=== PATIENT | female | born 1970 ===

== ENCOUNTER 2024-07-22 08:52 | Emergency (ER) | payer MEDICAID, SELFPAY ==
--- NOTE | ~2024-07-22 | XR_ITS ---
CLINICAL HISTORY: chest pain 2 view chest x-ray. Comparison: None Findings: The lungs are adequately expanded. No focal consolidation. No effusion or pneumothorax. Cardiac and mediastinal contours are within normal limits. No acute osseous abnormality Impression: No acute process. This document has been electronically signed by: Elton Moser MD on 07/22/2024 10:16:39
--- NOTE | ~2024-07-22 | CT_ITS ---
CLINICAL HISTORY: tachycardia, SOB CT angiography chest with contrast. 3D Postprocessing. Comparison: None Findings: The heart size is normal. RV/LV ratio is normal. Unremarkable thoracic aorta and great vessels. No aneurysm. No pulmonary artery filling defects. The visualized thyroid and mediastinum are unremarkable. Emphysema. Calcified granulomas. Hypodensity of the liver dome could represent a cyst. Gallstones in the gallbladder. No acute fractures. IMPRESSION: 1. No pulmonary emboli. This document has been electronically signed by: Gabby Boeyr MD on 07/22/2024 15:55:34
[2024-07-22 08:55] VITALS: BP 116/85; PULSE 112; RESP 20; TEMP 37.4; O2SAT 92; BMI 24.3
--- NOTE | 2024-07-22 08:58 | ECG_ITS ---
Test Reason : chest pain Blood Pressure : */* mmHG Vent. Rate : 94 BPM Atrial Rate : 94 BPM P-R Int : 178 ms QRS Dur : 82 ms QT Int : 344 ms P-R-T Axes : 81 73 74 degrees QTcB Int : 430 ms Normal sinus rhythm Possible Left atrial enlargement Borderline ECG No previous ECGs available Referred By: Generic ED Physician Electronically Signed By: GLORY BASS
[2024-07-22 09:18] LABS: MANUAL DIFF FLAG NO
[2024-07-22 09:19] LABS: Basophils Percent Auto 0.4 % (0-2); Eosinophils Absolute Auto 0.1 X10*3/uL (0.0-0.4); Eosinophils Percent Auto 0.7 % (0-4); Hematocrit 44.6 % (37.0-47.0); Hemoglobin 14.8 g/dl (12.0-16.0); Imm Gran Abs Auto 0.01 X10*3/uL (0.00-0.03); Imm Gran Pct Auto 0.1 % (0.0-0.4); Lymphocytes Percent Auto 11.6 % (20-40); Mean Corpuscular HGB Conc 33.2 g/dl (31.0-35.0); Mean Corpuscular Hemoglobin 32.2 pg (27.0-33.0); Mean Corpuscular Volume 97.2 fL (80.0-98.0); Mean Platelet Volume 9.1 fL (9.4-12.3); Monocytes Absolute Auto 0.7 X10*3/uL (0.1-1.2); Monocytes Percent Auto 7.8 % (2-11); Neutrophils Absolute Auto 6.8 x10*3/uL (2.0-8.3); Neutrophils Percent Auto 79.4 % (45-73); Platelet Count 208 X10*3/uL (160-400); Red Blood Count 4.59 X10*6/uL (4.20-5.50); Red Cell Distribution Width 12.9 % (11.0-16.0); White Blood Count 8.5 X10*3/uL (4.8-10.8)
[2024-07-22 09:27] LABS: IDNOW Serial# 58CA691E; Strep A Nucleic Acid Negative (Negative)
--- NOTE | 2024-07-22 09:31 | ED_ITS ---
HPI - SOB/Dyspnea General Chief Complaint: Dyspnea Stated Complaint: diff breathing Time Seen by Provider: 07/22/24 09:21 Source: patient and RN notes reviewed Mode of arrival: ambulatory Limitations: no limitations History of Present Illness ED Provider: Naya Lopez PA-C HPI Narrative: This is a 54-year-old female, with a past medical history of asthma, who presents emergency department with concerns for productive cough cough, and chest pain. Patient reports that over the last 2 days she has had intermittent fevers, chills, body aches, cough, shortness for breath, wheezing, and chest discomfort. She states that the symptoms have been constant. Describing the chest discomfort as a tight sensation. She states that she does not have access to her inhaler as she was currently at a senior care house for alcohol use disorder. She states that everyone else in the home is also sick with similar symptoms. Denies taking any medications as this is not provided to her in the senior care house. No other drug use. She does state that she smokes cigarettes, typically 7 cigarettes per day since she was a teenager. No other complaints or concerns at this time. MD elicited complaint: shortness of breath, cough and chest pain Pertinent past history: asthma Onset (ago): day(s) Timing: constant Exacerbating factors: nothing Relieving factors: nothing Known history of: asthma Associated symptoms: chest pain, fever, cough and wheezing Treatment prior to arrival: none Related Data Previous Rx's ?Medication ?Instructions ?Recorded acetaminophen 500 mg tablet 1,000 mg (2 x 500 mg) PO Q8H PRN 07/22/24 (Tylenol Extra Strength) fever or pain #30 tabs albuterol sulfate 90 mcg/actuation 2 puff inhalation 6XD PRN 07/22/24 aerosol inhaler shortness of breath or wheezing #6.7 grams azithromycin 250 mg tablet 250 mg PO QNOON 4 days #4 tabs 07/22/24 benzonatate 100 mg capsule 100 mg PO TID PRN cough 5 days #12 07/22/24 caps ibuprofen 600 mg tablet 600 mg PO Q6H PRN pain #30 tabs 07/22/24 prednisone 20 mg tablet 40 mg (2 x 20 mg) PO DAILY 4 days 07/22/24 #8 tabs Allergies Allergy/AdvReac Type Severity Reaction Status Date / Time Penicillins [PCN] Allergy Anaphylaxis Verified 07/22/24 08:58 Review of Systems 2 Review of Systems: Yes all other systems are reviewed and are negative Constitutional: Constitutional: Reports as per [facility] Social History Social History Advance Directives: No Advance Directives Information Provided: Yes Physical Exam 2 Vital Signs: Vital Signs: Last Vital Signs Temp 98.1 F 07/22/24 17:00 Pulse 98 07/22/24 17:00 Resp 20 07/22/24 17:00 BP 114/75 07/22/24 17:00 Pulse Ox 98 07/22/24 17:00 O2 Del Method Room Air 07/22/24 17:00 BMI result Body Mass Index 24.3 Const: General: cooperative, comfortable and no acute distress O rientation/consciousness: patient oriented x3 Limitations: no limitations HEENT: Head: Yes normal to inspection, Yes normocephalic and Yes atraumatic Ears: hearing grossly normal bilaterally General nose exam: Normal external nose present Face and sinus: Yes normal facial exam Mouth: Normal oral and palatal mucosa present, oropharynx normal and moist mucous membranes Throat: Yes posterior oropharynx normal Eyes: General: appearance normal, both eyes and all related structures E yelids: Yes eyelids normal Conjunctivae: conjunctivae normal Sclerae: s clerae normal Pupils: Equal, round and reactive pupils present EOM: EOMs intact bilaterally Neck: Neck: Yes normal visual inspection, Yes full ROM and Yes no lymphadenopathy Lymphatic: no lymphadenopathy noted Chest: Chest palpation & inspection: normal inspection of the chest Resp: Other: Extremely diminished throughout, faint inspiratory and expiratory wheezes noted > heard better on the anterior chest. Effort & Inspection: normal respiratory effort and able to speak in complete sentences Auscultation: clear to auscultation bilaterally, no crackles, no rales, no rhonchi and no wheezes Cardio: Rate: regular rate Rhythm: regular rhythm Heart sounds: S1 normal heart sound present and S2 normal heart sound present GI: Other: Abdomen is soft, nontender, nondistended Inspection: Yes normal to inspection Skin: General skin exam: no rashes or lesions noted Trauma: no lacerations or abrasions Wounds: no wounds Neuro: General: patient oriented x3 and moves all extremities Cranial nerves: Yes Equal, round and reactive pupils present Extrem: Other: No pitting edema noted bilaterally. General: Yes normal to inspection Right upper extremity: normal to inspection Left upper extremity: normal to inspection Right lower extremity: normal to inspection Left lower extremity: normal to inspection Course Reevaluation(s) Reevaluation #1: Patient with elevated lactic acidosis, likely due to albuterol updrafts. Patient already received antibiotics, and 2 L of IV fluids. Patient feeling much better, she has no leukocytosis, chest x-ray does not reveal any evidence of pneumonia. Negative COVID, flu, RSV and strep. We will continue to closely monitor pending re-evaluation, and repeat lactic. Time: 11:49 Reevaluation #2: Patient tachycardic, likely secondary to albuterol. I discussed at length overall workup today. Given that she was tachycardic just resting comfortably, will obtain CTA to rule out PE or any infectious causes. She states that she has a history of IVDA, has not used in over a year. We will continue to closely monitor. She states that she was feeling much better. She still is receiving IV fluids. Reevaluation #3: Lactic acidosis is due to albuterol updrafts. She has no leukocytosis, she was afebrile, nontoxic-appearing feeling much better after receiving IV fluids, and updrafts and Solu-Medrol. Walking O2 stat performed, not hypoxic, no longer tachycardic. No evidence of pneumonia or PE on CT scan. There is a hypodensity of the liver which could represent a cyst, as well as gallstones in the gallbladder, otherwise unremarkable findings. Discussed overall workup with patient, given that she is feeling much better, with normal vital signs, and reassuring workup, patient can be safely discharged. I discussed this overall workup my attending physician who agrees with this plan. Repeat lactic not warranted at this time. Patient stable for discharge. Time: 15:57 Medications Administered Discontinued Medications Generic Name Dose Route Start Last Admin Trade Name Freq PRN Reason Stop Dose Admin Benzonatate 100 mg 07/22/24 16:26 07/22/24 16:43 Benzonatate 100 Mg Capsule PO 07/22/24 16:27 100 mg ONCE ONE Administration Albuterol Sulfate 2.5 mg/ 0 mg 07/22/24 10:00 07/22/24 10:13 Albuterol/Ipratropium 3 ml INHALE 07/22/24 10:01 5 dose ONCE ONE Administration Sodium Chloride 1,000 mls @ 999 mls/hr 07/22/24 09:40 07/22/24 11:00 Ns IV 07/22/24 10:40 Infused .Q1H1M ONE Infusion Acetaminophen 1,000 mg in 100 mls @ 400 mls/hr 07/22/24 09:40 07/22/24 10:25 Ofirmev IV 07/22/24 09:54 Infused ONCE ONE Infusion Sodium Chloride 1,000 mls @ 999 mls/hr 07/22/24 10:00 07/22/24 13:47 Ns IV 07/22/24 11:00 Infused .Q1H1M ALVERTO Infusion Azithromycin 500 mg/ Sodium 250 mls @ 125 mls/hr 07/22/24 09:55 07/22/24 13:47 Chloride IV 07/22/24 11:54 Infused ONCE ONE Infusion Iohexol 100 ml 07/22/24 15:04 07/22/24 15:04 Iohexol 350 Mg/Ml 100 Ml Infus..Btl IV 07/22/24 15:05 65 ml ONCE ONE Administration Methylprednisolone Sodium Succinate 60 mg 07/22/24 09:40 07/22/24 10:13 Methylprednisolone Sod Succ 125 Mg/2 Ml Vial IVPUSH 07/22/24 09:41 60 mg ONCE ONE Administration Medical Decision Making Medical Decision Making [facility] Narrative: This is a 54-year-old female who presents emergency department for evaluation of cough, congestion, fevers, and shortness of breath. On arrival, patient's oxygen saturation 92% on room air, tachycardic at 112. She was afebrile. Lungs are diminished, with inspiratory and expiratory wheezes noted, more pronounced on the anterior chest. She has had sick contacts at the facility that she was living in. Denies taking any medications at home to treat her current symptoms. Differential diagnoses include URI, flu, COVID, bronchitis. EKG, chest x-ray, viral swabs, EKG. We will also obtain lactic, and cultures although infectious etiology is unlikely. Will also administer IV fluids, IV Solu-Medrol and IV azithromycin. We will continue to closely monitor pending overall workup. Differential Diagnosis Differential Diagnoses: The differential diagnosis associated with the presentation includes Bronchitis, acute COPD exacerbation, pneumonia, flu, COVID Admission/Observation Consideration of admission/observation: Escalation of care including admission/observation considered Lab Data [facility] Lab Attestation statement: I reviewed the patient's lab results. No leukocytosis, stable H&H, chemistry with no significant electrolyte derangement, slight hypercalcemia at 10.8, negtive flu, covid, rsv 07/22/24 09:11 07/22/24 09:12 Labs: Lab Results 07/22/24 07/22/24 07/22/24 Range/Units 09:11 09:12 10:54 WBC 8.5 (4.8-10.8) X10*3/uL RBC 4.59 (4.20-5.50) X10*6/uL Hgb 14.8 (12.0-16.0) g/dl Hct 44.6 (37.0-47.0) % MCV 97.2 (80.0-98.0) fL MCH 32.2 (27.0-33.0) pg MCHC 33.2 (31.0-35.0) g/dl RDW 12.9 (11.0-16.0) % Plt Count 208 (160-400) X10*3/uL MPV 9.1 L (9.4-12.3) fL Immature Gran % (Auto) 0.1 (0.0-0.4) % Neut % (Auto) 79.4 H (45-73) % Lymph % (Auto) 11.6 L (20-40) % [place] % (Auto) 7.8 (2-11) % Eos % (Auto) 0.7 (0-4) % Baso % (Auto) 0.4 (0-2) % Lymph # (Auto) 1.0 L (1.2-4.9) X10*3/uL [place]yer # (Auto) 0.7 (0.1-1.2) X10*3/uL Eos # (Auto) 0.1 (0.0-0.4) X10*3/uL Baso # (Auto) 0.0 (0.0-0.2) X10*3/uL Abs Immat Gran (auto) 0.01 (0.00-0.03) X10*3/uL Absolute Neuts (auto) 6.8 (2.0-8.3) x10*3/uL Absolute Nucleated RBC 0.000 (0.0-0.012) X10*3/uL Nucleated RBC % (auto) 0.0 (0.0-0.2) /100WBC Sodium 142 (135-145) mmol/L Potassium 4.1 (3.3-5.1) mmol/L Chloride 109 H (96-108) mmol/L Carbon Dioxide 26 (22-29) mmol/L Anion Gap 11 L (12-20) BUN 10 (9-16) mg/dL Creatinine 0.68 (0.5-1.4) mg/dL Estim Creat Clear Calc 90.9 Estimated GFR > 60 Random Glucose 91 (60-115) mg/dL Lactic Acid (0.5-2.0) mmol/L Lactic Acid F/U @ 2Hr (0.5-2.0) mmol/L Calcium 10.8 H (8.4-10.2) mg/dL Total Bilirubin 0.5 (0.0-1.0) mg/dL AST 20 (5-31) U/L ALT 19 (0-31) U/L Alkaline Phosphatase 206 H (39-117) U/L Troponin I High Sens < 2.7 (<3.5-17.0) ng/L C-Reactive Protein 0.90 H (< or = 0.50) mg/dL B-Natriuretic Peptide 21 (<100) pg/mL Total Protein 7.6 (6.5-8.0) g/dL Albumin 4.3 (3.5-5.0) g/dL Urine Color Yellow Urine Appearance Clear Urine pH 8.5 (5.0-9.0) Ur Specific [place] 1.015 (1.005-1.025) Urine Protein Negative (Neg-Trace) mg/dL Urine Glucose (UA) Negative (Negative) mg/dL Urine Ketones Negative (Negative) mg/dL Urine Blood Negative (Negative) Urine Nitrite Negative (Negative) Ur Leukocyte Esterase Trace H (Negative) Urine RBC 0-2 (0-2) /HPF Urine WBC 0-5 (0-5) /HPF Ur Squamous Epith Cells 3-5 (0-2) /HPF Urine Bacteria None Seen (None Seen) Hyaline Casts 0-2 (0-2) /LPF Urine Test NEGATIVE (NEGATIVE) Influenza Type A (PCR) NEGATIVE (Negative) Influenza Type B (PCR) NEGATIVE (Negative) RSV RNA Qual (PCR) NEGATIVE (Negative) SARS-CoV-2 RNA (RT-PCR) NEGATIVE (Negative) S. pyogenes GrpA EDDIE Negative (Negative) 07/22/24 07/22/24 Range/Units 11:27 14:00 WBC (4.8-10.8) X10*3/uL RBC (4.20-5.50) X10*6/uL Hgb (12.0-16.0) g/dl Hct (37.0-47.0) % MCV (80.0-98.0) fL MCH (27.0-33.0) pg MCHC (31.0-35.0) g/dl RDW (11.0-16.0) % Plt Count (160-400) X10*3/uL MPV (9.4-12.3) fL Immature Gran % (Auto) (0.0-0.4) % Neut % (Auto) (45-73) % Lymph % (Auto) (20-40) % Dyer % (Auto) (2-11) % Eos % (Auto) (0-4) % Baso % (Auto) (0-2) % Lymph # (Auto) (1.2-4.9) X10*3/uL Dyer # (Auto) (0.1-1.2) X10*3/uL Eos # (Auto) (0.0-0.4) X10*3/uL Baso # (Auto) (0.0-0.2) X10*3/uL Abs Immat Gran (auto) (0.00-0.03) X10*3/uL Absolute Neuts (auto) (2.0-8.3) x10*3/uL Absolute Nucleated RBC (0.0-0.012) X10*3/uL Nucleated RBC % (auto) (0.0-0.2) /100WBC Sodium (135-145) mmol/L Potassium (3.3-5.1) mmol/L Chloride (96-108) mmol/L Carbon Dioxide (22-29) mmol/L Anion Gap (12-20) BUN (9-16) mg/dL Creatinine (0.5-1.4) mg/dL Estim Creat Clear Calc Estimated GFR Random Glucose (60-115) mg/dL Lactic Acid 2.2 H* (0.5-2.0) mmol/L Lactic Acid F/U @ 2Hr 2.3 H* (0.5-2.0) mmol/L Calcium (8.4-10.2) mg/dL Total Bilirubin (0.0-1.0) mg/dL AST (5-31) U/L ALT (0-31) U/L Alkaline Phosphatase (39-117) U/L Troponin I High Sens < 2.7 (<3.5-17.0) ng/L C-Reactive Protein (< or = 0.50) mg/dL B-Natriuretic Peptide (<100) pg/mL Total Protein (6.5-8.0) g/dL Albumin (3.5-5.0) g/dL Urine Color Urine Appearance Urine pH (5.0-9.0) Ur Specific [place] (1.005-1.025) Urine Protein (Neg-Trace) mg/dL Urine Glucose (UA) (Negative) mg/dL Urine Ketones (Negative) mg/dL Urine Blood (Negative) Urine Nitrite (Negative) Ur Leukocyte Esterase (Negative) Urine RBC (0-2) /HPF Urine WBC (0-5) /HPF Ur Squamous Epith Cells (0-2) /HPF Urine Bacteria (None Seen) Hyaline Casts (0-2) /LPF Urine Test (NEGATIVE) Influenza Type A (PCR) (Negative) Influenza Type B (PCR) (Negative) RSV RNA Qual (PCR) (Negative) SARS-CoV-2 RNA (RT-PCR) (Negative) S. pyogenes GrpA EDDIE (Negative) Independent Interpretation I performed an independent interpretation of an: EKG Interpretation: Normal sinus rhythm at a ventricular rate of 94 beats per minute, QT QTC 344/430, no ST elevation or depression. Radiology Impression Discussion of test interpretation with radiology: I have reviewed the radiologist's reading. Radiologist Impression: Report Number: [id number]: Total DLP = 234.00 mGy-cm CLINICAL HISTORY: tachycardia, SOB CT angiography chest with contrast. 3D Postprocessing. Comparison: None Findings: The heart size is normal. RV/LV ratio is normal. Unremarkable thoracic aorta and great vessels. No aneurysm. No pulmonary artery filling defects. The visualized thyroid and mediastinum are unremarkable. Emphysema. Calcified granulomas. Hypodensity of the liver dome could represent a cyst. Gallstones in the gallbladder. No acute fractures. IMPRESSION: 1. No pulmonary emboli. This document has been electronically signed by: Gabby Boyer MD on 07/22/2024 15:55:34 Dictated By: Gabby Boyer MD CLINICAL HISTORY: chest pain 2 view chest x-ray. Comparison: None Findings: The lungs are adequately expanded. No focal consolidation. No effusion or pneumothorax. Cardiac and mediastinal contours are within normal limits. No acute osseous abnormality Impression: No acute process. This document has been electronically signed by: Elton Moser MD on 07/22/2024 10:16:39 Dictated By: Elton Moser MD Signed By: <Electronically signed by Discharge Plan Discharge Clinical Impression: Upper respiratory infection Patient Disposition: Home, Self-Care Instructions: Upper Respiratory Infection (ED) Additional Instructions: You were seen in the emergency department. You tested negative for COVID, flu, and RSV. Your chest x-ray does not show a pneumonia. Your CT of your chest does not show any blood clots. You likely have a virus that is causing you to have the symptoms. You were given 1st dose of steroids, and inhaler, as well as antibiotics. Please take prescribed antibiotic, azithromycin, take azithromycin 250 mg by mouth once a day, start this tomorrow (07/23). Please use albuterol inhaler 2 puffs every 6 hours as needed for shortness of breath and chest tightness. Alternate between ibuprofen and Tylenol as needed for fevers and pain. Tessalon is a medication to help with cough, take as as needed for cough. If any new or worsening symptoms occur including but not limited to severe chest pain, shortness of breath, please seek emergent care. You need to have a primary care physician, call the [facility] to have this is established. Your CTA does have incidental findings they are as follows: Hypodensity of the liver dome could represent a cyst. Gallstones in the gallbladder. You also have slight elevation in calcium which you should have repeated by primary care physician. Follow-up with your primary care physician regarding these findings. Please consider patient to be moved to the 1st or 2nd floor in her living facility given asthma and climbing up stairs can provoke shortness of breath. Prescriptions: New ibuprofen 600 mg tablet 600 mg PO Q6H PRN (Reason: pain) Qty: 30 0RF acetaminophen [Tylenol Extra Strength] 500 mg tablet 1,000 mg PO Q8H PRN (Reason: fever or pain) Qty: 30 0RF prednisone 20 mg tablet 40 mg PO DAILY 4 Days Qty: 8 0RF Rx Instructions: start 07/23 azithromycin 250 mg tablet 250 mg PO QNOON 4 Days Qty: 4 0RF Rx Instructions: start on day 2 of therapy albuterol sulfate 90 mcg/actuation HFA aerosol inhaler 2 puff inhalation 6XD PRN (Reason: shortness of breath or wheezing) Qty: 6.7 0RF benzonatate 100 mg capsule 100 mg PO TID PRN (Reason: cough) 5 Days Qty: 12 0RF Referrals: [facility] [Physician] - Stand Alone Forms: Work/School Release Discharge Date/Time: 07/22/24 17:52 Print Language: Lao
[2024-07-22 09:36] LABS: Alanine Aminotransferase 19 U/L (0-31); Albumin Level 4.3 g/dL (3.5-5.0); Alkaline Phosphatase 206 U/L (39-117); Anion Gap 11 (12-20); Aspartate Amino Transferase 20 U/L (5-31); Bilirubin Total 0.5 mg/dL (0.0-1.0); Blood Urea Nitrogen 10 mg/dL (9-16); Calcium 10.8 mg/dL (8.4-10.2); Carbon Dioxide 26 mmol/L (22-29); Chloride 109 mmol/L (96-108); Creatinine Clr Calc Pharmacy 90.9; Estimated Glomerular Filt Rate > 60; Glucose Random 91 mg/dL (60-115); Potassium 4.1 mmol/L (3.3-5.1); Sodium 142 mmol/L (135-145); Total Protein 7.6 g/dL (6.5-8.0)
[2024-07-22 09:50] LABS: Troponin-I High Sensitivity < 2.7 ng/L (<3.5-17.0)
[2024-07-22 09:55] LABS: Influenza A PCR NEGATIVE (Negative); Influenza B PCR NEGATIVE (Negative); Resp Syncy Virus RNA Qual PCR NEGATIVE (Negative); SARS COV2 PCR INHOUSE NEGATIVE (Negative)
[2024-07-22 10:00] VITALS: PULSE 100; RESP 24; O2SAT 100
[2024-07-22] MEDS: 0.9 % Sodium Chloride 1,000 ML 999 ML IV ×2 (10:10→12:48)
[2024-07-22] MEDS: Acetaminophen 1,000 MG/100 ML PIGGYBACK 400 MG IV (10:10)
[2024-07-22] MEDS: methylPREDNISolone Sod Succ 125 MG/2 ML VIAL 60 MG IVPUSH (10:13)
[2024-07-22] MEDS: Albuterol Sulfate 2.5 MG, Albuterol/Iprat 2.5/0.5MG 3 ML 3 ML INHALE (10:13)
[2024-07-22 10:19] LABS: B Type Natriuretic Peptide 21 pg/mL (<100)
[2024-07-22 11:02] LABS: Appearance Urine Clear; Color Urine Yellow; Glucose Urine UA Negative (Negative); Leukocyte Esterase Urine Trace (Negative); Nitrite Urine Negative (Negative); PH 8.5 (5.0-9.0); Specific Gravity - Urine 1.015 (1.005-1.025); UMIC TRIGGER UACC YES; Urine Blood Negative (Negative); Urine Ketones Negative (Negative); Urine Protein Negative (Neg-Trace)
[2024-07-22 11:04] LABS: Bacteria Urine None Seen (None Seen); Hyaline Casts Urine 0-2 /LPF (0-2); RBC Urine 0-2 /HPF (0-2); UPreg QC Valid YES; Urine Pregnancy NEGATIVE (NEGATIVE); WBC Urine 0-5 /HPF (0-5)
[2024-07-22] MEDS: Azithromycin 500 MG in 0.9 % Sodium Chloride 250 ML 125 MG IV (11:34)
[2024-07-22 11:50] LABS: Lactic Acid 2.2 mmol/L (0.5-2.0)
[2024-07-22 12:02] VITALS: BP 114/78; PULSE 113; RESP 20; TEMP 37.2; O2SAT 98
[2024-07-22 12:05] VITALS: BP 125/81; PULSE 115; RESP 20; TEMP 37.2; O2SAT 93
[2024-07-22 13:31] LABS: Reflex Lactate? Lactic Acid Added
[2024-07-22 14:24] LABS: ~Lactic Acid-LAB USE ONLY 2.3 mmol/L (0.5-2.0)
[2024-07-22 14:30] LABS: Troponin-I High Sensitivity < 2.7 ng/L (<3.5-17.0)
[2024-07-22 15:01] VITALS: BP 103/77; PULSE 103; RESP 20; TEMP 36.9; O2SAT 98
[2024-07-22] MEDS: iohexoL 350 MG/ML 100 ML INFUS..BTL IV (15:04)
[2024-07-22 16:04] LABS: Reflex Lactate? 2 Y
--- NOTE | 2024-07-22 16:22 | MHC.EDTECH ---
ambulation trial with o2 monitors patient o2 stat was between 92 to 94 patient states she is not feeling well patient states she is too weak to go home. nurse aware. heart rate consistent 105 to 111. nurse aware
[2024-07-22] MEDS: Benzonatate 100 MG CAPSULE PO (16:43)
[2024-07-22 17:00] VITALS: BP 114/75; PULSE 98; RESP 20; TEMP 36.7; O2SAT 98
== END 2024-07-22 17:52 | disposition home or self-care (01) ==
PROVIDERS: Emergency Medicine; Physician Assistant Medical; Emergency Provider Emergency Medicine
DX: J06.9 Acute upper respiratory infection, unspecified (principal); R07.89 Other chest pain; R06.02 Shortness of breath; R05.9 Cough, unspecified; R00.0 Tachycardia, unspecified; R50.9 Fever, unspecified; Z03.818 Encounter for observation for suspected exposure to other biological agents ruled out; Z79.899 Other long term (current) drug therapy
CPT/HCPCS: 0241U; 36415; 71046; 71275; 80053; 81001; 81003; 81025; 83605; 83880; 84484; 85025; 86140; 87040; 87651; 93005; 94640; 96361; 96365; 96366; 96375; 99284; J0131; J0456; J2919; Q9967

== ENCOUNTER → 2024-07-22 08:58 | Outpatient (BNV) | payer MEDICAID, SELFPAY | PROVIDERS: Emergency Provider Emergency Medicine; Visit Provider Internal Medicine | DX: R07.9 Chest pain, unspecified (principal) | CPT/HCPCS: 93010 ==

== ENCOUNTER → 2024-07-22 08:58 | Outpatient (BNV) | payer MEDICAID, SELFPAY | PROVIDERS: Emergency Provider Emergency Medicine; Visit Provider Radiology Vascular & Interventional Radiology | DX: R00.0 Tachycardia, unspecified (principal); R06.02 Shortness of breath; R07.9 Chest pain, unspecified | CPT/HCPCS: 71046; 71275 ==